=== PATIENT | male | born 1995 | race African-American/Black ===

== ENCOUNTER 2020-04-21 13:13 | Emergency (ER) | payer MEDICAID ==
[~2020-04-21] VITALS: Ht 172.7 cm; Wt 75.0 kg
[2020-04-21 14:15] LABS: BG BASE EXCESS -2.2 mmol/L (-2.0-2.0); BG CARBOXYHEMOGLOBIN 3.2 % (0.5-1.5); BG DEOXYHEMOGLOBIN 2.6 % (0.0-5.0); BG FRACTION INSPIRED OXYGEN 21; BG METHEMOGLOBIN 0.3 % (0.0-1.5); BG OXYGEN SATURATION 97.3 % (92.0-98.5); BG OXYHEMOGLOBIN 93.9 % (94.0-97.0); BG PCO2 32.5 mmHg (35.0-45.0); BG PH 7.429 (7.350-7.450); BG PO2 92.3 mmHg (75.0-100.0); BG SAMPLE SITE RIGHT BRACHIAL; BG VENT MODE ROOM AIR
[2020-04-21 15:11] LABS: BASOPHILS % 0.2 % (0.0-2.0); EOSINOPHILS % 0.3 % (0.0-5.0); HEMATOCRIT. 44.2 % (42.0-52.0); HEMOGLOBIN. 15.1 g/dL (14.0-18.0); LYMPHOCYTES % 8.2 % (20.0-50.0); MEAN CORPUSCULAR VOLUME 84.8 fL (80.0-94.0); MEAN PLATELET VOLUME 9.2 fl (7.4-10.4); NEUTROPHILS % 84.3 % (40.0-76.0); PLATELET 175 x1000/uL (130-400); RED BLOOD CELL COUNT 5.21 mill/uL (4.7-6.1); RED CELL DISTRIBUTION WIDTH 12.8 % (11.6-14.6)
[2020-04-21 15:19] LABS: CHLORIDE 111 mEq/L (98-107)
[2020-04-21 15:26] LABS: ETHANOL BLOOD < 10 mg/dL
[2020-04-21 15:59] LABS: CLARITY URINE CLEAR (CLEAR); COLOR URINE YELLOW (YELLOW); KETONES URINE 1+ (NEGATIVE); LEUKOCYTE ESTERASE URINE NEGATIVE (NEGATIVE); NITRITE URINE NEGATIVE (NEGATIVE); OCCULT BLOOD URINE 1+ (NEGATIVE); PH URINE 5.5 (4.5-8.0); PROTEIN URINE 1+ (NEGATIVE); SPECIFIC GRAVITY URINE 1.034 (1.005-1.030)
[2020-04-21 16:11] LABS: *AMPHETAMINES SCREEN URINE NEGATIVE (NEGATIVE); *BARBITURATES SCREEN URINE NEGATIVE (NEGATIVE); *BENZODIAZEPINES SCREEN URINE NEGATIVE (NEGATIVE); *COCAINE SCREEN URINE NEGATIVE (NEGATIVE)
[2020-04-21 16:12] LABS: CANNABINOID URINE SCREEN PRESUMTIVE POSITIVE (NEGATIVE); METHADONE URINE SCREEN NEGATIVE (NEGATIVE); OPIATES URINE SCREEN NEGATIVE (NEGATIVE); PHENCYCLIDINE URINE SCREEN NEGATIVE (NEGATIVE)
[2020-04-21 16:30] VITALS: BP 126/76
== END 2020-04-21 17:11 | disposition home or self-care (01) ==
LOC: ER 13:41
DX: S20.219A Contusion of unspecified front wall of thorax, initial encounter (principal); I49.9 Cardiac arrhythmia, unspecified; X58.XXXA Exposure to other specified factors, initial encounter; Y93.89 Activity, other specified; Y92.89 Other specified places as the place of occurrence of the external cause; Y99.8 Other external cause status
CPT/HCPCS: 36415; 36600; 80053; 80305; 80320; 81003; 82375; 82805; 85025; 93005; 99285; G0480